=== PATIENT | female | born 1965 | race Caucasian/White ===

== ENCOUNTER 2017-03-21 18:27 | Emergency (ER) | payer BC ==
[2017-03-21] MEDS ORDERED: ASPIRIN 81 MG CHEW PO STA (19:20)
[2017-03-21 20:04] LABS: Basophils % (A) 1 %; CH 29.4; CHCM 34.2; Eosinophils # (A) 0.1 k/uL (0-0.7); Eosinophils % (A) 1 %; HCT 40.7 % (34.0-46.0); HDW 2.65; Luc # (Auto) 0.08; Luc % (Auto) 2; Lymphocytes # (A) 1.5 k/uL (1.0-4.8); Lymphocytes % (A) 28 %; MCH 29.6 pg (25.0-35.0); MCHC 34.3 g/dL (31.0-37.0); MCV 86.5 fL (80.0-100.0); Monocytes # (A) 0.3 k/uL (0-1.0); Monocytes % (A) 5 %; Neutrophils # (A) 3.5 k/uL (1.3-7.7); Neutrophils % (A) 65 %; RBC 4.71 m/uL (3.80-5.40); RDW 13.5 % (11.5-15.5); WBC 5.4 k/uL (3.8-10.6); WBC (Perox) 5.37
[2017-03-21 20:12] LABS: Anion Gap 11 mmol/L; Blood Urea Nitrogen 6 mg/dL (7-17); Calcium 9.1 mg/dL (8.4-10.2); Carbon Dioxide 25 mmol/L (22-30); Chloride 104 mmol/L (98-107); Glucose 101 mg/dL (74-99); Non-African American GFR(MDRD) >60 (>60 ml/min/1.73 sqM); Potassium 3.8 mmol/L (3.5-5.1); Sodium 140 mmol/L (137-145)
[2017-03-21 20:18] LABS: INR 0.9 (<1.2); Prothrombin Time 9.6 sec (9.0-12.0)
[2017-03-21] MEDS ORDERED: LIDOCAINE 5% PATCH TOPICAL ONE (20:23)
--- NOTE | 2017-03-21 20:31 | ED ---
Chest Pain HPI - General Chief Complaint: Chest Pain Stated Complaint: shoulder and collar bone pain Time Seen by Provider: 03/21/17 19:19 Source: patient Mode of arrival: ambulatory Limitations: no limitations - History of Present Illness Initial Comments: Kristen Mcgregor is a 51-year-old female who presents to the emergency department for evaluation of left-sided chest wall pain radiating to her left collarbone and left shoulder. Patient reports that 2 days ago she was holding her grandson on her lap when he placed his elbow into her ribs and pushed himself up into a standing position. She reports that he dug his elbow into her ribs which resulted in a severe stabbing pain and knocked the wind out of her. Patient reports that since that time she has experienced progressively worsening pain in the left sided chest wall. The pain is worse with any movement of her left arm or shoulder, palpation of the tender area or deep breathing. Patient denies any exertional chest pain, pain resolved with rest or any shortness of breath. She reports she has taken Motrin and Flexeril for the pain without any relief. She describes the pain as being an 8 out of 10 in severity, however with palpation and increases to a 10.5 out of 10. Patient denies any cardiac history, or history of DVT or PE. She does report she has been diagnosed with pleurisy in the past and does feel that this is similar to that pain. - Related Data Home Medications Medication Instructions Recorded Confirmed Butalb/Acetaminophen/Caffeine 1 tab PO Q6HR PRN 01/28/14 03/21/17 [Fioricet 50-325-40 mg Tablet] Zolpidem [Ambien] 10 mg PO HS PRN 01/28/14 03/21/17 Ibuprofen [Motrin] 400 mg PO Q6HR PRN 03/21/17 03/21/17 Previous Rx's Medication Instructions Recorded Diazepam [Valium] 2 mg PO BID #10 tab 03/21/17 Diazepam [Valium] 2 mg PO BID #10 tab 03/21/17 Lidocaine [Lidoderm 5% Patch] 1 patch TRANSDERM DAILY #10 patch 03/21/17 Allergies Allergy/AdvReac Type Severity Reaction Status Date / Time diphenhydramine HCl Allergy Unknown Verified 03/21/17 19:55 [From Benadryl] escitalopram oxalate Allergy Unknown Verified 03/21/17 19:55 [From Lexapro] ketorolac tromethamine Allergy Unknown Verified 03/21/17 19:55 [From Toradol] morphine Allergy Unknown Verified 03/21/17 19:55 Penicillins Allergy Unknown Verified 03/21/17 19:55 prochlorperazine edisylate Allergy Confusion Verified 03/21/17 19:55 [From Compazine] prochlorperazine maleate Allergy Confusion Verified 03/21/17 19:55 [From Compazine] prednisone AdvReac Unknown Verified 03/21/17 19:55 Review of Systems ROS Statement: Those systems with pertinent positive or pertinent negative responses have been documented in the HPI. ROS Other: All systems not noted in ROS Statement are negative. Constitutional: Denies: fever, chills Eyes: Denies: vision change ENT: Denies: throat pain Respiratory: Reports: other. Denies: cough, dyspnea, wheezes Cardiovascular: Denies: palpitations, dyspnea on exertion (S wall pain), orthopnea, edema, syncope, paroxysmal nocturnal dyspnea Endocrine: Denies: fatigue Gastrointestinal: Denies: abdominal pain, nausea, vomiting Genitourinary: Denies: urgency, dysuria Musculoskeletal: Reports: myalgia, other (HEENT with any movement of her left shoulder). Denies: back pain, arthralgia Skin: Denies: rash, lesions, change in color Neurological: Denies: headache, weakness, numbness, paresthesias Psychiatric: Reports: depression (Is upset that she cannot enjoy her vacation due to this pain) Hematological/Lymphatic: Denies: easy bleeding, easy bruising EKG Findings - EKG Comments: EKG Findings:: EKG at 1859. EKG rate 87, rhythm normal sinus, normal intervals , MN is 146, QRS 84, QTC is 454. There is no acute ST elevations or depressions there is no evidence of acute ischemia or infarction. Past Medical History Additional Past Medical History / Comment(s): Migraines, Kidney Stone History of Any Multi-Drug Resistant Organisms: None Reported Past Surgical History: Appendectomy, Cholecystectomy, Hysterectomy Additional Past Surgical History / Comment(s): Laparoscopy Past Psychological History: Anxiety Smoking Status: Never smoker Past Alcohol Use History: None Reported Past Drug Use History: None Reported General Exam Limitations: no limitations General appearance: alert, other ([place] comfortable) Head exam: Present: atraumatic, normocephalic, normal inspection Eye exam: Present: normal appearance, PERRL, EOMI. Absent: scleral icterus, conjunctival injection, periorbital swelling ENT exam: Present: normal exam, mucous membranes moist Neck exam: Present: normal inspection. Absent: tenderness, meningismus, lymphadenopathy Respiratory exam: Present: normal lung sounds bilaterally, chest wall tenderness (Tenderness to palpation of the left chest wall). Absent: respiratory distress, wheezes, rales, rhonchi, stridor Cardiovascular Exam: Present: regular rate, normal rhythm, normal heart sounds. Absent: systolic murmur, diastolic murmur, rubs GI/Abdominal exam: Present: soft, normal bowel sounds. Absent: distended, tenderness, guarding, rebound, rigid Rectal exam: Present: deferred Extremities exam: Present: full ROM, tenderness (Tenderness and left chest wall with any movement of the left shoulder) Back exam: Present: normal inspection Neurological exam: Present: alert, oriented X3, CN II-XII intact Psychiatric exam: Present: depressed, agitated Skin exam: Present: warm, dry, intact, normal color. Absent: rash Course Vital Signs 03/21/17 03/21/17 18:53 20:36 Temperature 97.8 F Pulse Rate 91 90 Respiratory 17 18 Rate Blood Pressure 140/82 135/80 O2 Sat by Pulse 99 99 Oximetry - Reevaluation(s) Reevaluation #1: Patient reevaluated, patient declined the by mouth Valium and she is concerned about driving and doesn't want to remain in the hospital for 4 hours after taking it. Patient agreeable to Lidoderm patch. Reevaluation #2: She reports significant improvement after Lidoderm 03/21/17 21:03 Chest Pain [facility] She was seen and evaluated, history was obtained from the patient History and physical exam are concerning for musculoskeletal chest wall pain or possible rib fracture Lidoderm patch and Valium were ordered Labs unremarkable, d-dimer and troponin were negative Chest x-ray with no acute fracture dislocation or pneumothorax Patient declined Valium and she is concerned about driving Chest wall pain improving with Lidoderm Patient was reevaluated and is expressing improvement in her pain with the Lidoderm, Cardiac Workup is negative Based on the patient's physical exam, lab evaluation, x-rays and her improvement in pain with Lidoderm I am confident that this is musculoskeletal chest wall pain secondary to trauma Was discussed with the patient, I advised her that if she has any exertional chest pain, shortness of breath, worsening pain or pain not relieved by her Lidoderm she should return to the emergency department for further evaluation however at this time I feel the patient is stable for discharge home. Patient' s pertaining to care were answered and the patient was discharged home with prescription for Valium and Lidoderm. Disposition Clinical Impression: Chest pain, musculoskeletal, Contusion of rib Disposition: HOME SELF-CARE Condition: Good Instructions: Costochondritis (ED) Prescriptions: Diazepam [Valium] 2 mg PO BID #10 tab Lidocaine [Lidoderm 5% Patch] 1 patch TRANSDERM DAILY #10 patch Referrals: Nonstaff,Physician [Primary Care Provider] - 1-2 days
--- NOTE | 2017-03-21 20:33 | XR ---
EXAMINATION TYPE: XR ribs LT w pa chest x-ray DATE OF EXAM: 03/21/2017 COMPARISON: NONE HISTORY: Upper chest pain in the left side of ribs TECHNIQUE: 5 views FINDINGS: There is no rib fracture. No pneumothorax. No pleural effusion. There are no incidental findings. IMPRESSION: Negative examination.
[2017-03-21] MEDS: DIAZEPAM 2 MG TAB PO STA ×2 (20:43→20:44)
[2017-03-21 21:40] VITALS: BP 131/87; PULSE 85; RESP 19; TEMP 97.3
== END 2017-03-21 21:00 | disposition home or self-care (01) ==
LOC: EC 18:27
DX: S20.212A Contusion of left front wall of thorax, initial encounter (principal); F32.9 Major depressive disorder, single episode, unspecified; R45.1 Restlessness and agitation; M25.512 Pain in left shoulder; M89.8X8 Other specified disorders of bone, other site; Z88.0 Allergy status to penicillin; Z88.5 Allergy status to narcotic agent; Z88.6 Allergy status to analgesic agent; Z88.8 Allergy status to other drugs, medicaments and biological substances; W51.XXXA Accidental striking against or bumped into by another person, initial encounter
CPT/HCPCS: 36415; 80048; 83880; 84484; 85025; 85610; 85730; 93005; 99285